=== PATIENT | female | born 1950 | race Caucasian/White ===

== ENCOUNTER 2022-01-16 17:02 | Inpatient (IN) | payer MEDICARE ==
[2022-01-16] MEDS ORDERED: HYDROmorphone 0.5 MG/0.5 ML SYRINGE IVP STA (19:21)
[2022-01-16] MEDS ORDERED: ONDANSETRON 4 MG/2 ML VIAL IVP STA (19:22)
[2022-01-16] MEDS ORDERED: SODIUM CHLORIDE 0.9% 1,000 ML IV ONE ×2 (19:22→20:01)
[2022-01-16] MEDS ORDERED: PIPERACILLIN-TAZOBACTAM 3.375 GM in SODIUM CHLORIDE 0.9% 100 ML IVPB STA (19:24)
[2022-01-16 19:48] LABS: Basophils % (A) 0 %; Eosinophils % (A) 0 %; HCT 39.5 % (34.0-46.0); HGB 13.4 gm/dL (11.4-16.0); Lymphocytes # (A) 1.3 k/uL (1.0-4.8); Lymphocytes % (A) 11 %; MCH 30.6 pg (25.0-35.0); MCHC 33.9 g/dL (31.0-37.0); MCV 90.3 fL (80.0-100.0); Monocytes # (A) 0.6 k/uL (0-1.0); Monocytes % (A) 5 %; Neutrophils % (A) 83 %; Platelet Count 273 k/uL (150-450); RBC 4.37 m/uL (3.80-5.40); RDW 12.5 % (11.5-15.5)
--- NOTE | 2022-01-16 19:48 | ED ---
General Adult HPI - General Chief complaint: Abdominal Pain Stated complaint: seen 01.16.22 - gallbladder issues Time Seen by Provider: 01/16/22 18:46 Source: patient, RN notes reviewed, old records reviewed Mode of arrival: ambulatory Limitations: no limitations - History of Present Illness Initial comments: This is a 71-year-old female presents emergency Department complaining of right upper quadrant abdominal pain since Thursday. Patient states the pain is slowly got worse per patient states the pain radiates to her back and occasionally to left upper quadrant. Patient states she is also extremely nauseated. Patient denies any difficulty breathing shortness of breath. Patient denies any fever chills or cough. Patient denies any headache patient denies numbness or weakness. Patient denies any lightheadedness or dizziness. Patient denies any recent injury or trauma. Patient states the pain is getting progressively worse per patient states she had an outpatient CT and they told her it was acute cholecystitis. - Related Data Allergies Allergy/AdvReac Type Severity Reaction Status Date / Time No Known Allergies Allergy Verified 01/16/22 17:51 Review of Systems ROS Statement: Those systems with pertinent positive or pertinent negative responses have been documented in the HPI. ROS Other: All systems not noted in ROS Statement are negative. Past Medical History Past Medical History: Coronary Artery Disease (CAD) History of Any Multi-Drug Resistant Organisms: None Reported Past Surgical History: Heart Catheterization, Heart Catheterization With Stent, Orthopedic Surgery Past Psychological History: No Psychological Hx Reported Smoking Status: Never smoker Past Alcohol Use History: None Reported Past Drug Use History: None Reported General Exam - General Exam Comments Initial Comments: GENERAL: Patient is well-developed and well-nourished. Patient is nontoxic and well- hydrated and is in mild distress. ENT: Neck is soft and supple. No significant lymphadenopathy is noted. Oropharynx is clear. Moist mucous membranes. Neck has full range of motion without eliciting any pain. EYES: The sclera were anicteric and conjunctiva were pink and moist. Extraocular movements were intact and pupils were equal round and reactive to light. Eyelids were unremarkable. PULMONARY: Unlabored respirations. Good breath sounds bilaterally. No audible rales rhonchi or wheezing was noted. CARDIOVASCULAR: There is a regular rate and rhythm without any murmurs gallops or rubs. ABDOMEN: Right upper quadrant abdominal pain SKIN: Skin is clear with no lesions or rashes and otherwise unremarkable. NEUROLOGIC: Patient is alert and oriented x3. Cranial nerves II through XII are grossly intact. Motor and sensory are also intact. Normal speech, volume and content. Symmetrical smile. MUSCULOSKELETAL: Normal extremities with adequate strength and full range of motion. LYMPHATICS: No significant lymphadenopathy is noted PSYCHIATRIC: Normal psychiatric evaluation. Limitations: no limitations Course Vital Signs 01/16/22 01/16/22 17:43 19:19 Temperature 97.9 F Pulse Rate 103 H 95 Respiratory 18 18 Rate Blood Pressure 151/89 154/75 O2 Sat by Pulse 97 95 Oximetry Medical Decision Making - Medical Decision Making EKG was interpreted by me EKG shows sinus rhythm at 96 bpm LA interval is 162 QRS is 97 Q-T intervals 342 QTC is 396 per patient's EKG shows no ST segment elevation. I started the patient on antibiotics give the patient some Zofran for nausea and give the patient some Dilaudid for pain. I interpreted the outpatient CAT scan of the abdomen and pelvis it did show acute cholecystitis. I spoke with but he agreed to admit the patient admitted the patient wrote admitting orders I started the patient on antibiotics and continued antibiotics on the floor. - Lab Data Result diagrams: 01/16/22 19:42 01/16/22 19:42 Lab Results 01/16/22 01/16/22 Range/Units 19:42 19:42 WBC 12.0 H (3.8-10.6) k/uL RBC 4.37 (3.80-5.40) m/uL Hgb 13.4 (11.4-16.0) gm/dL Hct 39.5 (34.0-46.0) % MCV 90.3 (80.0-100.0) fL MCH 30.6 (25.0-35.0) pg MCHC 33.9 (31.0-37.0) g/dL RDW 12.5 (11.5-15.5) % Plt Count 273 (150-450) k/uL MPV 8.0 Neutrophils % 83 % Lymphocytes % 11 % Monocytes % 5 % Eosinophils % 0 % Basophils % 0 % Neutrophils # 10.0 H (1.3-7.7) k/uL Lymphocytes # 1.3 (1.0-4.8) k/uL Monocytes # 0.6 (0-1.0) k/uL Eosinophils # 0.0 (0-0.7) k/uL Basophils # 0.0 (0-0.2) k/uL Sodium 137 (137-145) mmol/L Potassium 4.5 (3.5-5.1) mmol/L Chloride 102 (98-107) mmol/L Carbon Dioxide 24 (22-30) mmol/L Anion Gap 11 mmol/L BUN 14 (7-17) mg/dL Creatinine 0.93 (0.52-1.04) mg/dL Est GFR (CKD-EPI)AfAm 73 (>60 ml/min/1.73 sqM) Est GFR (CKD-EPI)NonAf 63 (>60 ml/min/1.73 sqM) Glucose 153 H (74-99) mg/dL Calcium 9.6 (8.4-10.2) mg/dL Total Bilirubin 1.4 H (0.2-1.3) mg/dL AST 24 (14-36) U/L ALT 23 (4-34) U/L Alkaline Phosphatase 147 H (38-126) U/L Total Protein 7.3 (6.3-8.2) g/dL Albumin 4.0 (3.5-5.0) g/dL Disposition Clinical Impression: Acute cholecystitis Disposition: ADMITTED IP TO THIS HOSP Referrals: Macho Pitts DO [Primary Care Provider] - 1-2 days Time of Disposition: 20:00
[2022-01-16 19:57] LABS: Partial Thromboplastin Time 23.5 sec (22.0-30.0); Prothrombin Time 10.4 sec (9.0-12.0)
[2022-01-16 19:58] LABS: Calcium 9.6 mg/dL (8.4-10.2); Potassium 4.5 mmol/L (3.5-5.1); Total Bilirubin 1.4 mg/dL (0.2-1.3); Total Protein 7.3 g/dL (6.3-8.2)
[2022-01-16] MEDS ORDERED: ONDANSETRON 4 MG/2 ML VIAL IVP PRN (20:02)
--- NOTE | 2022-01-16 20:36 | US ---
EXAMINATION TYPE: US gallbladder DATE OF EXAM: 01/16/2022 COMPARISON: CT: Today CLINICAL HISTORY: Right upper quadrant abdominal pain. RUQ pain TECHNIQUE: Multiple sonographic images of the right upper quadrant are obtained. FINDINGS: EXAM MEASUREMENTS: Liver Length: 14.2 cm Gallbladder Wall: 0.5 cm CBD: Not vis Right Kidney: 11.3 x 6.2 x 5.3 cm DECKER OPERATOR NOTES: Limited due to pt body habitus Pancreas: Obscured by bowel gas Liver: Difficult to penetrate Gallbladder: Hydropic with thickened wall Evidence for sonographic Jimenez's sign: No CBD: Not visualized. Right Kidney: Cystic areas visualized, CT diagnosed with chronic hydronephrosis. IMPRESSION: 1. No acute process. 2. Findings consistent with known chronic right hydronephrosis.
[2022-01-16] MEDS ORDERED: LORazepam 2 MG/ML INJ IV ONE (20:59)
--- NOTE | 2022-01-16 21:29 | XR ---
EXAMINATION: XR chest 2V: 01/16/2022 8:54 PM CLINICAL INDICATION: Difficulty breathing TECHNIQUE: AP and lateral COMPARISON: None FINDINGS: The lungs are hypoinflated the moment of x-ray exposure. The lungs appear to be clear, except for add ed opacity in the posterior infrahilar position on the lateral radiograph. This is nonspecific but co uld correlate with a clinical diagnosis of resolving or developing bronchopneumonia. The finding is r elatively small. The cardiac silhouette is mildly enlarged. The remainder of the mediastinal silhouette is unremarkabl e. The skeletal structures and soft tissues are negative for acute findings. IMPRESSION: Lateral radiograph finding.
[2022-01-17] MEDS: PIPERACILLIN-TAZOBACTAM 3.375 GM in SODIUM CHLORIDE 0.9% 100 ML IVPB SCH ×3 (01:47→17:35)
[2022-01-17 08:53] LABS: Basophils # (A) 0.01 X 10*3/uL (0.00-0.10); Basophils % (A) 0.1 %; Eosinophils # (A) 0.04 X 10*3/uL (0.04-0.35); Eosinophils % (A) 0.3 %; HCT 35.7 % (37.2-46.3); HGB 11.2 g/dL (12.0-15.0); Immature Grans, Automated 0.3 %; MCH 29.2 pg (27.0-32.0); MCHC 31.4 g/dL (32.0-37.0); Monocytes # (A) 1.36 X 10*3/uL (0.20-1.00); Monocytes % (A) 10.6 %; NRBC Per 100 WBC 0 /100 WBCS (0.0-0.0); Neutrophils # (A) 9.03 X 10*3/uL (1.80-7.70); Neutrophils % (A) 70.7 %; Platelet Count 264 X 10*3/uL (140-440); RBC 3.84 X 10*6/uL (4.10-5.20); RDW 12.6 % (11.5-14.5); WBC 12.78 X 10*3/uL (4.50-10.00)
[2022-01-17 09:18] LABS: African American GFR (CKD) 58.9 (60.0-200.0); Albumin 3.6 g/dL (3.8-4.9); Albumin/Globulin Ratio 1.29 (1.60-3.17); Anion Gap 8.1 mmol/L (10.00-18.00); BUN/Creat Ratio 12.09 Ratio (12.00-20.00); Blood Urea Nitrogen 13.3 mg/dL (9.0-27.0); Calcium 9.7 mg/dL (8.7-10.3); Carbon Dioxide 24.9 mmol/L (20.0-27.5); Globulin 2.8 g/dL (1.6-3.3); Non-African American GFR(CKD) 50.8 (60.0-200.0); Potassium 4.6 mmol/L (3.5-5.5); Total Bilirubin 0.9 mg/dL (0.30-1.20); Total Protein 6.4 g/dL (6.2-8.2)
[2022-01-17] MEDS ORDERED: METOPROLOL SUCCINATE (ER) 50 MG TAB.ER.24H PO STA (09:55)
[2022-01-17] MEDS: HYDROmorphone 0.5 MG/0.5 ML SYRINGE IVP PRN ×2 (10:12→21:24)
[2022-01-17] MEDS ORDERED: LACTATED RINGERS 1,000 ML IV ONE (12:15)
[2022-01-17] MEDS ORDERED: SODIUM CHLORIDE 0.9% 1,000 ML IV ONE (12:15)
[2022-01-17] MEDS ORDERED: DEXAMETHASONE SOD PHOSPHATE 4 MG/ML 1 ML VIAL IVP ONE (12:24)
--- NOTE | 2022-01-17 12:30 | P.GSHP ---
History of Present Illness H&P Date: 01/17/22 CHIEF COMPLAINT: Abdominal pain HISTORY OF PRESENT ILLNESS: This is a 71-year-old female presented to the hospital with complaints of right upper quadrant abdominal pain that started 6 days ago. Patient reports that the pain radiates across to the left upper quadrant and into her back. She has been having nausea and vomiting. She's had cold sweats. Denies any actual fever. She did go see her primary care who ordered a computed tomography scan abdomen and pelvis that showed concerns for possible acute cholecystitis. Therefore patient came into the ER for further evaluation. Gallbladder ultrasound had shown hydropic gallbladder with thickened wall. She has had leukocytosis. She is mildly tachycardic. Patient's past surgical history does include . Patient denies being on blood thinners. PAST MEDICAL HISTORY: Coronary disease with cardiac stent, weak heart follows with cardiology and patient reports that her last echo 6 months ago had shown improvement in the EF. PAST SURGICAL HISTORY: See below MEDICATIONS: See below ALLERGIES: See below SOCIAL HISTORY: No illicit drug use. REVIEW OF SYSTEMS: CONSTITUTIONAL: Denies fever or chills. HEENT: Denies blurred vision, vision changes, or eye pain. Denies hemoptysis CARDIOVASCULAR: Denies chest pain or pressure. RESPIRATORY: No shortness of breath. GASTROINTESTINAL: See HPI for pertinent findings HEMATOLOGIC: Denies bleeding disorders. GENITOURINARY: Denies any blood in urine or increased urinary frequency. SKIN: Denies pruitis. Denies rash. PHYSICAL EXAM: VITAL SIGNS: Reviewed GENERAL: Well-developed in no acute distress. HEENT: No sclera icterus. Extraocular movements grossly intact. Moist buccal mucosa. Head is atraumatic, normocephalic. No nasal drainage. ABDOMEN: Soft. Nondistended. Tenderness to palpation of the right upper quadrant NEUROLOGIC: Alert and oriented. Cranial nerves II through XII grossly intact. LABORATORY DATA: WBC 12.70 Hgb 11.2 platelets 264 Sodium is 135 potassium 4.6 creatinine 1.1 Total bilirubin 1.4 down to 0.9 AST 16 ALT 19 alk phos 139 IMAGING: Computed tomography scan abdomen and pelvis correlate for acute cholecystitis. Large renal pelvic staghorn calculus difficult to measure however measures at least 3.5 x 2.5 cm. There is severe chronic right-sided hydronephrosis with marked renal parenchymal thinning noted of the right kidney. Gallbladder ultrasound no acute process. Hydropic gallbladder with thickened wall. Findings consistent with known chronic right hydronephrosis. ASSESSMENT: 1. Acute cholecystitis PLAN: -Patient scheduled for laparoscopic cholecystectomy today with Dr. chandler -Keep patient nothing by mouth -Continue antibiotics -Continue IV fluids -Resume patient's metoprolol -Consult medicine for medical management Physician Flasher Adjuster note has been reviewed by physician. Signing provider agrees with the documented findings, assessment, and plan of care. Past Medical History Past Medical History: Coronary Artery Disease (CAD) History of Any Multi-Drug Resistant Organisms: None Reported Past Surgical History: Heart Catheterization, Heart Catheterization With Stent, Orthopedic Surgery Past Psychological History: No Psychological Hx Reported Smoking Status: Never smoker Past Alcohol Use History: None Reported Past Drug Use History: None Reported Medications and Allergies Home Medications Medication Instructions Recorded Confirmed Type Aspirin EC [Ecotrin Low Dose] 81 mg PO DAILY 01/16/22 01/16/22 History Evolocumab [Repatha Sureclick] 140 mg SQ [id number] 01/16/22 01/16/22 History Metoprolol Succinate (ER) [Toprol 50 mg PO HS 01/16/22 01/16/22 History Xl] Triple Action Cleanse Herbal Detox 1 tab PO DAILY 01/16/22 01/16/22 History Vitamin C/Biotin [Hair, Skin and 1 tab PO DAILY 01/16/22 01/16/22 History Nails Chew] lisinopriL [Zestril] 5 mg PO DAILY 01/16/22 01/16/22 History Allergies Allergy/AdvReac Type Severity Reaction Status Date / Time No Known Allergies Allergy Verified 01/17/22 12:21 Surgical - Exam Vital Signs Temp Pulse Resp BP Pulse Ox 97.9 F 103 H 18 151/89 97 01/16/22 17:43 01/16/22 17:43 01/16/22 17:43 01/16/22 17:43 01/16/22 17:43 Results - Labs 01/17/22 05:42 01/17/22 05:42 Abnormal Lab Results - Last 24 Hours (Table) 01/16/22 01/16/22 01/17/22 Range/Units 19:42 19:42 05:42 WBC 12.0 H 12.78 H (3.8-10.6) k/uL RBC 3.84 L (4.10-5.20) X 10*6/uL Hgb 11.2 L (12.0-15.0) g/dL Hct 35.7 L (37.2-46.3) % MCHC 31.4 L (32.0-37.0) g/dL Neutrophils # 10.0 H 9.03 H (1.3-7.7) k/uL Monocytes # 1.36 H (0.20-1.00) X 10*3/uL Anion Gap (10.00-18.00) mmol/L Est GFR (CKD-EPI)AfAm (60.0-200.0) Est GFR (CKD-EPI)NonAf (60.0-200.0) Glucose 153 H (74-99) mg/dL Total Bilirubin 1.4 H (0.2-1.3) mg/dL Alkaline Phosphatase 147 H (38-126) U/L Albumin (3.8-4.9) g/dL Albumin/Globulin Ratio (1.60-3.17) g/dL 01/17/22 Range/Units 05:42 WBC (3.8-10.6) k/uL RBC (4.10-5.20) X 10*6/uL Hgb (12.0-15.0) g/dL Hct (37.2-46.3) % MCHC (32.0-37.0) g/dL Neutrophils # (1.3-7.7) k/uL Monocytes # (0.20-1.00) X 10*3/uL Anion Gap 8.10 L (10.00-18.00) mmol/L Est GFR (CKD-EPI)AfAm 58.9 L (60.0-200.0) Est GFR (CKD-EPI)NonAf 50.8 L (60.0-200.0) Glucose 130 H (74-99) mg/dL Total Bilirubin (0.2-1.3) mg/dL Alkaline Phosphatase 139 H (38-126) U/L Albumin 3.6 L (3.8-4.9) g/dL Albumin/Globulin Ratio 1.29 L (1.60-3.17) g/dL Diabetes panel 01/16/22 01/17/22 Range/Units 19:42 05:42 Sodium 137 135 (137-145) mmol/L Potassium 4.5 4.6 (3.5-5.1) mmol/L Chloride 102 102 (98-107) mmol/L Carbon Dioxide 24 24.9 (22-30) mmol/L BUN 14 13.3 (7-17) mg/dL Creatinine 0.93 1.1 (0.52-1.04) mg/dL Glucose 153 H 130 H (74-99) mg/dL Calcium 9.6 9.7 (8.4-10.2) mg/dL AST 24 16 (14-36) U/L ALT 23 19 (4-34) U/L Alkaline Phosphatase 147 H 139 H (38-126) U/L Total Protein 7.3 6.4 (6.3-8.2) g/dL Albumin 4.0 3.6 L (3.5-5.0) g/dL Calcium panel 01/16/22 01/17/22 Range/Units 19:42 05:42 Calcium 9.6 9.7 (8.4-10.2) mg/dL Albumin 4.0 3.6 L (3.5-5.0) g/dL Pituitary panel 01/16/22 01/17/22 Range/Units 19:42 05:42 Sodium 137 135 (137-145) mmol/L Potassium 4.5 4.6 (3.5-5.1) mmol/L Chloride 102 102 (98-107) mmol/L Carbon Dioxide 24 24.9 (22-30) mmol/L BUN 14 13.3 (7-17) mg/dL Creatinine 0.93 1.1 (0.52-1.04) mg/dL Glucose 153 H 130 H (74-99) mg/dL Calcium 9.6 9.7 (8.4-10.2) mg/dL Adrenal panel 01/16/22 01/17/22 Range/Units 19:42 05:42 Sodium 137 135 (137-145) mmol/L Potassium 4.5 4.6 (3.5-5.1) mmol/L Chloride 102 102 (98-107) mmol/L Carbon Dioxide 24 24.9 (22-30) mmol/L BUN 14 13.3 (7-17) mg/dL Creatinine 0.93 1.1 (0.52-1.04) mg/dL Glucose 153 H 130 H (74-99) mg/dL Calcium 9.6 9.7 (8.4-10.2) mg/dL Total Bilirubin 1.4 H 0.90 (0.2-1.3) mg/dL AST 24 16 (14-36) U/L ALT 23 19 (4-34) U/L Alkaline Phosphatase 147 H 139 H (38-126) U/L Total Protein 7.3 6.4 (6.3-8.2) g/dL Albumin 4.0 3.6 L (3.5-5.0) g/dL
[2022-01-17] MEDS ORDERED: HEPARIN SODIUM,PORCINE/PF 5,000 UNIT/0.5 ML SYRINGE SQ ONE (13:16)
[2022-01-17] MEDS ORDERED: HEPARIN SODIUM,PORCINE 5,000 UNIT/ML 1 ML VIAL SQ ONE (13:18)
[2022-01-17] MEDS ORDERED: SUGAMMADEX SODIUM 200 MG/2 ML SDV IV ONE (13:45)
[2022-01-17] MEDS ORDERED: GLYCOPYRROLATE 0.2 MG/ML 2 ML VIAL ONE (13:45)
[2022-01-17] MEDS ORDERED: SUCCINYLCHOLINE CHLORIDE 200 MG/10 ML VIAL IV ONE (13:45)
[2022-01-17] MEDS ORDERED: MIDAZOLAM 2 MG/2 ML VIAL ONE (13:45)
[2022-01-17] MEDS ORDERED: ACETAMINOPHEN IV (For NPO) 1,000 MG/100 ML VIAL ONE (13:45)
[2022-01-17] MEDS ORDERED: PHENYLEPHRINE-0.9% NACL SYG 1,000 MCG/10 ML SYRINGE ONE (13:45)
[2022-01-17] MEDS ORDERED: LIDOCAINE 2% INJ 20 MG/ML (2 ML VIAL) ONE (13:45)
[2022-01-17] MEDS ORDERED: fentaNYL (PF) 50 MCG/ML 2 ML AMP ONE (13:45)
[2022-01-17] MEDS ORDERED: ROCURONIUM 10 MG/ML (5 ML VIAL) IV ONE (13:45)
[2022-01-17] MEDS ORDERED: PROPOFOL 10 MG/ML 20 ML VIAL IV ONE (13:45)
[2022-01-17] MEDS ORDERED: NEOSTIGMINE 1 MG/ML 10 ML VIAL ONE (13:45)
[2022-01-17] MEDS ORDERED: BUPIVACAIN-EPI 0.25%-1:200,000 30 ML VIAL SQ ONE (14:21)
--- NOTE | 2022-01-17 14:52 | P.OP ---
Date of Procedure: 01/17/22 Preoperative Diagnosis: Acute cholecystitis Postoperative Diagnosis: Acute cholecystitis Procedure(s) Performed: Laparoscopic cholecystectomy Anesthesia: JOE Surgeon: Jordy Morales Estimated Blood Loss (ml): 5 Pathology: other (Gallbladder) Condition: stable Disposition: PACU Operative Findings: Hydropic gallbladder with patchy necrosis Description of Procedure: The patient was placed on the operating table. The patient received a general endotracheal tube anesthesia. The patients abdomen was prepped and draped in the usual sterile fashion. Through an infraumbilical stab incision, the fascia of the anterior abdominal wall was grasped with a pair of Kochers and then the Veress needle was placed in the peritoneal cavity. Position of the Veress needle was confirmed with positive drop test. The abdomen was then insufflated. After adequate insufflation, the 10 mm trocar was placed in the peritoneal cavity. Following this the laparoscope was placed in the peritoneal cavity. The patient was placed in the head-up, right side up position and then a 5 mm trocar was placed in the right lateral and right subcostal position under direct visualization. A 8 mm trocar was placed in the epigastric position. The gallbladder was grasped in the fundus and infundibulum. Traction on the gallbladder was placed in the lateral and the cephalad positions. The triangle of Calot was visualized.. The cystic duct was bluntly dissected until the union of the cystic duct and common bile duct was seen. A critical view of safety was achieved. The cystic duct was then divided and sealed with the Harmonic scissors. A PDS Endoloop was then placed throughout the cystic duct stump. The cystic artery divided and sealed with the Harmonic scissors. The gallbladder was then removed from the liver bed using Harmonic scissors. The gallbladder was then extracted through the epigastric port site. Operative field was checked for any bleeding spots and Harmonic scissors was used to coagulate the liver bed. The abdomen was irrigated. The trocars were removed. The skin was closed using interrupted 3-0 Vicryl suture. Dermabond dressing were applied. The patient tolerated the procedure well.
--- NOTE | 2022-01-17 17:58 | P.CONS ---
History of Present Illness - Reason for Consult Consult date: 01/17/22 Medical management Requesting physician: Jordy Morales - Chief Complaint Abdominal pain - History of Present Illness This is a pleasant 71-year-old patient follows with Dr. Pitts. Chronic stable medical conditions include CAD with stent placed over a year ago, hyperli pidemia, hypertension, chronic right hydronephrosis ostial arthritis. 2 days ago patient started having increasing abdominal pain accompanied by nausea vomiting. No fever no chills. Presented to the ER. Ultrasound for the hydropic gallbladder with thickened wall. Patient today underwent a lapar oscopic cholecystectomy. Postprocedure patient's tired. No nausea vomiting. at the bedside. Diet has been ordered by surgery. Review of systems: GEN.: Tired EYES: None HEENT: None NECK: None RESPIRATORY: None CARDIOVASCULAR: None GASTROINTESTINAL: As above GENITOURINARY: None MUSCULOSKELETAL: Joint pains LYMPHATICS: None HEMATOLOGICAL: None PSYCHIATRY: None NEUROLOGICAL: None Past medical history to include: Chronic right-sided hydronephrosis,CAD with stent, hypertension, hyperlipidemia, osteoarthritis Social history: Retired as a dietary manager of a residential. No smoking or alcohol. . Family history: Reviewed, noncontributory to presentation Physical examination: VITAL SIGNS: 98, 78, 18, 129/77, 94% room air GENERAL: BMI 38.4, declining bed, awake, tired. EYES: Pupils equal. Conjunctiva normal. HEENT: External appearance of nose and ears normal, oral cavity grossly normal. NECK: JVD not raised; masses not palpable. HEART: First and second heart sounds are normal; no edema. LUNGS: Respiratory rate normal; clear to auscultation. ABDOMEN: Soft, tender, no guarding rigidity, liver spleen not palpable, no masses palpable. PSYCH: Alert and oriented x3; mood and affect normal. MUSCULOSKELETAL:No Clubbing/cyanosis;muscles-grossly intact, evidence of OA NEUROLOGICAL: Cranial nerves grossly intact; no facial asymmetry, power and sensation grossly intact. LYMPHATICS: No lymph nodes palpable in the axilla and neck INVESTIGATIONS, reviewed in the clinical context: White count 12.7 hemoglobin 11.2 platelets 264 potassium 4.6 creatinine 1.1 total bilirubin 0.9 AST 16 ALT 19 EKG tracing personally reviewed by me-normal sinus rhythm. Chest x-ray film personally reviewed by me-cardiomegaly. Lung maza clear. Abdominal ultrasound: Chronic right hydronephrosis. Call bladder wall thickening, hydropic Assessment and plan: -Acute cholecystitis, followed by laparoscopic cholecystectomy by Dr. Morales. Pain control. IV fluids. Diet as ordered by surgery -CAD with stent Resume aspirin, Lopressor -Essential hypertension Toprol-XL 50 mg daily at bedtime -Hyperlipidemia Patient gets repatha injections -Obesity BMI 38.4 Weight loss measures Resume home medications. Venodyne Boots for DVT prophylaxis. Pain control. Care was discussed with the patient and at the bedside. Questions answered. Thank you Dr. Morales Past Medical History Past Medical History: Coronary Artery Disease (CAD) History of Any Multi-Drug Resistant Organisms: None Reported Past Surgical History: Heart Catheterization, Heart Catheterization With Stent, Orthopedic Surgery Date of Last Stent Placement:: 2019. Past Psychological History: No Psychological Hx Reported Smoking Status: Never smoker Past Alcohol Use History: None Reported Past Drug Use History: None Reported Medications and Allergies Home Medications Medication Instructions Recorded Confirmed Type Aspirin EC [Ecotrin Low Dose] 81 mg PO DAILY 01/16/22 01/16/22 History Evolocumab [Repatha Sureclick] 140 mg SQ [id number] 01/16/22 01/16/22 History Metoprolol Succinate (ER) [Toprol 50 mg PO HS 01/16/22 01/16/22 History Xl] Triple Action Cleanse Herbal Detox 1 tab PO DAILY 01/16/22 01/16/22 History Vitamin C/Biotin [Hair, Skin and 1 tab PO DAILY 01/16/22 01/16/22 History Nails Chew] lisinopriL [Zestril] 5 mg PO DAILY 01/16/22 01/16/22 History Allergies Allergy/AdvReac Type Severity Reaction Status Date / Time No Known Allergies Allergy Verified 01/17/22 12:21 Physical Exam Vitals: Vital Signs Temp Pulse Pulse Resp BP BP BP 01/17/22 17:45 78 18 01/17/22 17:15 81 17 109/69 01/17/22 16:45 80 18 116/73 01/17/22 16:15 81 16 116/70 01/17/22 16:00 78 17 110/66 01/17/22 15:59 78 18 129/77 01/17/22 15:45 77 16 107/68 01/17/22 15:44 77 16 123/74 01/17/22 15:30 98.0 F 78 16 110/68 01/17/22 15:29 81 16 123/72 01/17/22 15:14 80 16 119/62 01/17/22 14:59 97.5 F L 79 16 124/70 01/17/22 12:14 98.9 F 90 16 134/66 01/17/22 09:47 106 H 20 122/79 01/17/22 08:00 78 18 01/17/22 05:33 90 16 142/86 01/17/22 00:51 87 16 129/86 01/16/22 19:19 95 18 154/75 Pulse Ox 01/17/22 17:45 01/17/22 17:15 97 01/17/22 16:45 95 01/17/22 16:15 96 01/17/22 16:00 97 01/17/22 15:59 94 L 01/17/22 15:45 96 01/17/22 15:44 92 L 01/17/22 15:30 96 01/17/22 15:29 99 01/17/22 15:14 99 01/17/22 14:59 93 L 01/17/22 12:14 95 01/17/22 09:47 94 L 01/17/22 08:00 01/17/22 05:33 95 01/17/22 00:51 95 01/16/22 19:19 95 Intake and Output 01/17/22 01/17/22 01/17/22 06:59 14:59 22:59 Intake Total 800 100 Output Total 5 Balance 795 100 Intake: IV 800 100 Output: Estimated Blood Loss 5 Other: Weight 98.43 kg 98.43 kg 98.43 kg Results CBC & Chem 7: 01/17/22 05:42 01/17/22 05:42 Labs: Abnormal Lab Results - Last 24 Hours (Table) 01/16/22 01/16/22 01/17/22 Range/Units 19:42 19:42 05:42 WBC 12.0 H 12.78 H (3.8-10.6) k/uL RBC 3.84 L (4.10-5.20) X 10*6/uL Hgb 11.2 L (12.0-15.0) g/dL Hct 35.7 L (37.2-46.3) % MCHC 31.4 L (32.0-37.0) g/dL Neutrophils # 10.0 H 9.03 H (1.3-7.7) k/uL Monocytes # 1.36 H (0.20-1.00) X 10*3/uL Anion Gap (10.00-18.00) mmol/L Est GFR (CKD-EPI)AfAm (60.0-200.0) Est GFR (CKD-EPI)NonAf (60.0-200.0) Glucose 153 H (74-99) mg/dL Total Bilirubin 1.4 H (0.2-1.3) mg/dL Alkaline Phosphatase 147 H (38-126) U/L Albumin (3.8-4.9) g/dL Albumin/Globulin Ratio (1.60-3.17) g/dL 01/17/22 Range/Units 05:42 WBC (3.8-10.6) k/uL RBC (4.10-5.20) X 10*6/uL Hgb (12.0-15.0) g/dL Hct (37.2-46.3) % MCHC (32.0-37.0) g/dL Neutrophils # (1.3-7.7) k/uL Monocytes # (0.20-1.00) X 10*3/uL Anion Gap 8.10 L (10.00-18.00) mmol/L Est GFR (CKD-EPI)AfAm 58.9 L (60.0-200.0) Est GFR (CKD-EPI)NonAf 50.8 L (60.0-200.0) Glucose 130 H (74-99) mg/dL Total Bilirubin (0.2-1.3) mg/dL Alkaline Phosphatase 139 H (38-126) U/L Albumin 3.6 L (3.8-4.9) g/dL Albumin/Globulin Ratio 1.29 L (1.60-3.17) g/dL
[2022-01-17 19:53] VITALS: RESP 16
[2022-01-17] MEDS ORDERED: METOPROLOL SUCCINATE (ER) 50 MG TAB.ER.24H PO SCH (21:00)
[2022-01-18] MEDS: PIPERACILLIN-TAZOBACTAM 3.375 GM in SODIUM CHLORIDE 0.9% 100 ML IVPB SCH ×2 (01:50→08:59)
[2022-01-18 05:28] VITALS: BP 118/71; PULSE 73; TEMP 97.3
[2022-01-18] MEDS ORDERED: ENOXAPARIN 40 MG/0.4 ML SYRINGE SQ SCH (09:00)
[2022-01-18] MEDS ORDERED: lisinopriL 5 MG TAB PO SCH (09:00)
[2022-01-18] MEDS ORDERED: ASPIRIN 81 MG PO SCH (09:00)
--- NOTE | 2022-01-18 11:18 | P.DS ---
Providers Date of admission: 01/16/22 20:01 Expected date of discharge: 01/18/22 Attending physician: Jordy Morales Consults: 01/17/22 12:16 Consult Physician Routine Consulting Provider: Scott Loyola Consult Reason/Comments: medical management Do you want consulting provider notified?: Yes Primary care physician: [facility] Course: This a 71-year-old female is minimal hospital for acute cholecystitis. Patient did well postoperatively. Please see chart for details. Procedures: Laparoscopic cholecystectomy Patient Condition at Discharge: Good Plan - Discharge Summary New Discharge Prescriptions: New Ibuprofen [Motrin] 600 mg PO Q6HR PRN #40 tab PRN Reason: Pain Levofloxacin [Levaquin] 500 mg PO DAILY 1 Days #7 tab oxyCODONE HCL [OxyIR] 5 mg PO Q6H PRN 3 Days #10 tab PRN Reason: Pain Acetaminophen Tab [Tylenol] 650 mg PO Q6H #30 tab No Action Metoprolol Succinate (ER) [Toprol Xl] 50 mg PO HS Vitamin C/Biotin [Hair, Skin and Nails Chew] 1 tab PO DAILY Evolocumab [Repatha Sureclick] 140 mg SQ [id number] Aspirin EC [Ecotrin Low Dose] 81 mg PO DAILY lisinopriL [Zestril] 5 mg PO DAILY Triple Action Cleanse Herbal Detox 1 tab PO DAILY Discharge Medication List Aspirin EC [Ecotrin Low Dose] 81 mg PO DAILY 01/16/22 [History] Evolocumab [Repatha Sureclick] 140 mg SQ [id number] 01/16/22 [History] Metoprolol Succinate (ER) [Toprol Xl] 50 mg PO HS 01/16/22 [History] Triple Action Cleanse Herbal Detox 1 tab PO DAILY 01/16/22 [History] Vitamin C/Biotin [Hair, Skin and Nails Chew] 1 tab PO DAILY 01/16/22 [History] lisinopriL [Zestril] 5 mg PO DAILY 01/16/22 [History] Acetaminophen Tab [Tylenol] 650 mg PO Q6H #30 tab 01/18/22 [Rx] Ibuprofen [Motrin] 600 mg PO Q6HR PRN #40 tab 01/18/22 [Rx] Levofloxacin [Levaquin] 500 mg PO DAILY 1 Days #7 tab 01/18/22 [Rx] oxyCODONE HCL [OxyIR] 5 mg PO Q6H PRN 3 Days #10 tab 01/18/22 [Rx] Follow up Appointment(s)/Referral(s): Macho Pitts DO [Primary Care Provider] - 1-2 days Jordy Morales MD [STAFF PHYSICIAN] - 1 Week Discharge Disposition: HOME SELF-CARE
== END 2022-01-18 12:15 | disposition home or self-care (01) | DRG 418 ==
LOC: EC 17:02 → 5NMEDONC 20:01
PROVIDERS: ADMIT Surgery; ATTEND Surgery
PROC: 0FT44ZZ Resection of Gallbladder, Percutaneous Endoscopic Approach (ICD-10-PCS; principal; 2022-01-17 10:45)
DX: K81.0 Acute cholecystitis (principal); K82.1 Hydrops of gallbladder; N13.2 Hydronephrosis with renal and ureteral calculous obstruction; I11.0 Hypertensive heart disease with heart failure; I50.9 Heart failure, unspecified; E78.5 Hyperlipidemia, unspecified; M19.90 Unspecified osteoarthritis, unspecified site; E66.9 Obesity, unspecified; Z68.38 Body mass index [BMI] 38.0-38.9, adult; I25.10 Atherosclerotic heart disease of native coronary artery without angina pectoris; Z79.82 Long term (current) use of aspirin; Z79.899 Other long term (current) drug therapy; Z95.5 Presence of coronary angioplasty implant and graft
CPT/HCPCS: 36415; 71046; 74177; 76705; 80053; 82150; 83690; 85025; 85610; 85730; 88304; 93005; 94760; 96361; 96365; 96366; 96367; 96375; 99285

== ENCOUNTER → 2022-01-16 | Outpatient (CLI) | payer MEDICARE ==
[2022-01-16 12:48] LABS: ALT 23 U/L (4-34); AST 20 U/L (14-36); African American GFR (CKD) 65 (>60 ml/min/1.73 sqM); Albumin 4.2 g/dL (3.5-5.0); Albumin/Globulin Ratio 1.2; Alkaline Phosphatase 152 U/L (38-126); Amylase 39 U/L (30-110); Anion Gap 9 mmol/L; Blood Urea Nitrogen 15 mg/dL (7-17); Calcium 9.8 mg/dL (8.4-10.2); Carbon Dioxide 27 mmol/L (22-30); Chloride 105 mmol/L (98-107); Globulin 3.5 g/dL; Glucose 171 mg/dL (74-99); Lipase 47 U/L (23-300); Non-African American GFR(CKD) 57 (>60 ml/min/1.73 sqM); Sodium 141 mmol/L (137-145); Total Bilirubin 1.3 mg/dL (0.2-1.3); Total Protein 7.7 g/dL (6.3-8.2)
--- NOTE | 2022-01-16 14:06 | CT ---
EXAMINATION TYPE: CT abdomen pelvis w con DATE OF EXAM: 01/16/2022 COMPARISON: 08/26/2012 HISTORY: Upper abdominal pain, concern for gallbladder issues CT DLP: 2046.60 mGycm CONTRAST: CT scan of the abdomen and pelvis is performed with Oral Contrast and with IV Contrast, patient injec lupe with 80 mL of Isovue 370. FINDINGS: LUNG BASES-: No visible nodule. No infiltrate. Small sliding-type hiatal hernia. LIVER/GB: There is gallbladder hydrops noted measuring 9.5 cm. Mild wall thickening and pericholecy stic stranding. Correlate for acute cholecystitis. No visible calcified gallstones. No space occupyin g hepatic lesion. Biliary tree is of normal caliber. PANCREAS: No inflammation. No distinct mass. SPLEEN: No splenic enlargement. No lesion seen. ADRENALS: No nodule. No thickening. KIDNEYS/BLADDER: Large right renal pelvic staghorn calculus difficult to measure however measures at least 3.5 x 2.5 cm. There is severe chronic right-sided hydronephrosis with marked renal parenchymal thinning noted of the right kidney. The left kidney is free of hydronephrosis or nephrolithiasis. Nor mal excretion of contrast from the left kidney. No distinct renal mass. Urinary bladder grossly unre markable. BOWEL: Normal appendix. Normal bowel caliber. No inflammation. GENITAL ORGANS: No gross abnormality. LYMPH NODES: No greater than 1cm abdominal or pelvic lymph nodes are appreciated. AORTA: No significant abnormality. OSSEOUS STRUCTURES: No significant abnormality is seen. OTHER: No significant additional abnormality is seen. IMPRESSION: 1. Correlate for acute cholecystitis. 2.Large right renal pelvic staghorn calculus difficult to measure however measures at least 3.5 x 2.5 cm. There is severe chronic right-sided hydronephrosis with marked renal parenchymal thinning noted of the right kidney.
[2022-01-16 22:36] LABS: Basophils # (A) 0.02 X 10*3/uL (0.00-0.10); Basophils % (A) 0.1 %; Eosinophils # (A) 0.09 X 10*3/uL (0.04-0.35); Eosinophils % (A) 0.7 %; HCT 42.8 % (37.2-46.3); HGB 13.3 g/dL (12.0-15.0); Immature Grans, Automated 0.3 %; Lymphocytes # (A) 1.74 X 10*3/uL (0.90-5.00); Lymphocytes % (A) 12.9 %; MCH 29.1 pg (27.0-32.0); MCHC 31.1 g/dL (32.0-37.0); MCV 93.7 fL (80.0-97.0); Monocytes # (A) 1.17 X 10*3/uL (0.20-1.00); Monocytes % (A) 8.7 %; NRBC Per 100 WBC 0 /100 WBCS (0.0-0.0); Neutrophils # (A) 10.38 X 10*3/uL (1.80-7.70); Neutrophils % (A) 77.3 %; Platelet Count 292 X 10*3/uL (140-440); RBC 4.57 X 10*6/uL (4.10-5.20); RDW 12.4 % (11.5-14.5); WBC 13.44 X 10*3/uL (4.50-10.00)
== END | disposition home or self-care (01) ==
LOC: RADCTMAIN 11:54
PROVIDERS: ATTEND Family Medicine
DX: N13.2 Hydronephrosis with renal and ureteral calculous obstruction (principal)
CPT/HCPCS: 80053; 82150; 83690; 85025; 74177; Q9967